=== PATIENT | male | born 1980 | race Caucasian/White ===

== ENCOUNTER → 2017-06-24 | Outpatient (CLI) | payer OTHER ==
[2016-08-02 10:50] VITALS: BP 185/99
[~2017-06-24] MED LIST: CYCL10TA2 PO
--- NOTE | 2017-06-24 16:55 | KCIC ---
Left SHOULDER , 3 VIEWS Clinical Indication: Contusion left shoulder, pain with movement since 06/20. Comparison: None. Findings: There is no acute fracture or dislocation. The acromioclavicular and glenohumeral joints are intact. The visualized lung is clear. There is no evidence of a displaced rib fracture. There is no soft tissue abnormality. IMPRESSION: No acute fracture or dislocation. Electronically signed by: Tom Kaye MD (06/24/2017 4:52 PM) [id number]
== END | disposition home or self-care (01) ==
LOC: KCIC 14:56
PROVIDERS: ATTEND Nurse Practitioner Family
DX: S40.012D Contusion of left shoulder, subsequent encounter (principal); X58.XXXD Exposure to other specified factors, subsequent encounter
CPT/HCPCS: 73030

== ENCOUNTER → 2017-09-15 | Outpatient (CLI) | payer OTHER | END | disposition home or self-care (01) | LOC: KCIC MRI 16:32 | DX: M48.061 Spinal stenosis, lumbar region without neurogenic claudication (principal); M47.896 Other spondylosis, lumbar region | CPT/HCPCS: 72148 ==